=== PATIENT | male | born 1965 | race Caucasian/White ===

== ENCOUNTER → 2017-08-27 | Outpatient (CLI) | payer BC ==
[~2017-08-27] MED LIST: AMLODIPINE-VAL1 EACH PO; ATORVASTATIN CA20 MG PO; BYSTOLIC10 MG PO; CLOPIDOGREL75 MG PO; FENOFIBRATE145 M1 PO; FUROSEMIDE40 MG PO; IRBESARTAN300 MG PO; LO-DOSE ASPIRIN81 M1 PO; LOPRESSOR25 MG PO; MEN'S MULTI-VI1 EACH PO; NEXIUM20 MG PO; NEXIUM40 MG PO; SERTRALINE HCL100 MG PO
== END | disposition home or self-care (01) ==
LOC: NUC 12:50
DX: R10.11 Right upper quadrant pain (principal)
CPT/HCPCS: 78227; A9510; J2805

== ENCOUNTER 2017-09-23 12:35 | Emergency (ER) | payer BC ==
[~2017-09-23] VITALS: Ht 177.8 cm; Wt 120.8 kg
[2017-09-23 12:58] LABS: HEMATOCRIT 42.7 % (38.0-50.0); MCH 31.6 PG (29.0-34.0); MCHC 35.1 G/DL (30.0-36.0); MCV 90.1 FL (86-99); PLATELET COUNT 289 K/uL (156-360); RBC DIS.WIDTH-CV 11.9 % (11.8-14.6); RBC DIS.WIDTH-SD 39.1 % (39-53); RED BLOOD COUNT 4.74 M/uL (4.00-5.50); WHITE BLOOD COUNT 6.9 K/uL (4.1-10.2)
[2017-09-23 13:05] LABS: APPEARANCE CLEAR ((CLEAR)); BILIRUBIN NEGATIVE; BLOOD MODERATE; COLOR YELLOW ((YELLOW)); GLUCOSE (STRIP) NEGATIVE; KETONES NEGATIVE; LEUKOCYTES NEGATIVE; NITRITE NEGATIVE; PROTEIN (STRIP) 100; UROBILINOGEN 0.2 MG/DL (0.2-1.0)
[2017-09-23 13:09] LABS: ALBUMIN 4.5 g/dL (3.2-4.8); CHLORIDE 102 mEq/L (99-109); POTASSIUM 4.5 mEq/L (3.7-5.4)
[2017-09-23 13:10] LABS: SODIUM 139 mEq/L (136-147)
[2017-09-23 13:12] LABS: GLUCOSE 95 mg/dL (70-99); TOTAL PROTEIN 7.6 g/dL (6.4-8.3)
[2017-09-23 13:13] LABS: BACTERIA RARE /HPF; EPITHELIAL CELLS RARE /HPF; MUCUS NONE SEEN /LPF; UCUL ADDED? NO; WHITE BLOOD CELLS 0-5 /HPF (0-5)
[2017-09-23 13:14] LABS: TOTAL BILIRUBIN 0.5 mg/dL (0.0-1.0)
[2017-09-23 13:15] LABS: ALKALINE PHOSPHATASE 40 IU/L (3-129); CREATININE 1.4 mg/dL (0.6-1.3); GFR ESTIMATE (CALCULATED) 57 mL/min/ (58.99-99999)
[2017-09-23 13:17] LABS: AST (GOT) 27 IU/L (2-34); UREA NITROGEN (BUN) 21 mg/dL (9-23)
[2017-09-23 13:18] LABS: ALT (GPT) 33 IU/L (3-49)
[2017-09-23 13:19] LABS: LIPASE 94 U/L (1.0-51.0)
[2017-09-23] MEDS ORDERED: BENTYL20 MG PO (16:27)
[2017-09-23] MEDS ORDERED: LORTAB 5-325 M1 EACH PO (16:27)
[2017-09-23 16:41] VITALS: BP 136/68
== END 2017-09-23 16:41 | disposition home or self-care (01) ==
LOC: EME 12:35
DX: R10.11 Right upper quadrant pain (principal); M54.9 Dorsalgia, unspecified; R74.8 Abnormal levels of other serum enzymes; E78.5 Hyperlipidemia, unspecified; I10 Essential (primary) hypertension
CPT/HCPCS: 74177; 80053; 81003; 83690; 85027; 99281; 99285; J3010; J7030

== ENCOUNTER → 2017-09-26 | Outpatient (CLI) | payer BC ==
[~2017-09-26] MED LIST changes: +BENTYL20 MG PO; +LORTAB 5-325 M1 EACH PO
== END | disposition home or self-care (01) ==
LOC: RAD 11:00
DX: K76.0 Fatty (change of) liver, not elsewhere classified (principal); R59.0 Localized enlarged lymph nodes
CPT/HCPCS: 70140; 74183

== ENCOUNTER → 2017-10-07 | Outpatient (CLI) | payer BC ==
[~2017-10-07] VITALS: Ht 177.8 cm; Wt 117.9 kg
[~2017-10-07] MED LIST changes: +LIPITOR80 MG PO; +MAXZIDE 37.5 M1 EACH PO
== END | disposition home or self-care (01) ==
LOC: AMB 09:51
PROC: 0DJ08ZZ Inspection of Upper Intestinal Tract, Via Natural or Artificial Opening Endoscopic (ICD-10-PCS; principal; 2017-10-07)
PROC: 0DJD8ZZ Inspection of Lower Intestinal Tract, Via Natural or Artificial Opening Endoscopic (ICD-10-PCS; principal; 2017-10-07)
DX: K57.30 Diverticulosis of large intestine without perforation or abscess without bleeding (principal)
CPT/HCPCS: J2250; J3010